=== PATIENT | male | born 1975 | race Caucasian/White ===

== ENCOUNTER 2021-10-05 13:33 | Day surgery (SDC) | payer OTHER ==
[2021-10-05] MEDS ORDERED: Xylocaine 1% Vial 30 ML PF IJ ONE (13:34)
[2021-10-05] MEDS ORDERED: Sodium Chloride 0.9% 10 ML FLUSH Syringe IJ ONE (13:34)
[2021-10-05] MEDS ORDERED: Depo-Medrol 40 MG/ML IM ONE (13:34)
[2021-10-05] MEDS ORDERED: DIPRIVAN 200 MG/20 ML IV ONE (15:02)
[2021-10-05] MEDS ORDERED: Lactated Ringers 1,000 ML IV ONE (15:28)
--- NOTE | 2021-10-05 16:40 | XRAY ---
Indication: Lumbar JUANCARLOS. Intraoperative fluoroscopy provided for 19 seconds. Single lateral digital spot image submitted for interpretation demonstrates posterior needle tip projecting just posterior to the L4-L5 interspace. Small amount of contrast injected for needle tip placement. Correlate with intraoperative findings/report.
--- NOTE | 2021-10-05 16:55 | XRAY ---
19 seconds fluoroscopy time in surgery for lumbar JUANCARLOS.
== END 2021-10-05 15:23 | disposition home or self-care (01) ==
LOC: SDC-PAIN 13:33
PROVIDERS: ATTEND Psychiatry & Neurology Pain Medicine
DX: M54.16 Radiculopathy, lumbar region (principal); I10 Essential (primary) hypertension; K21.9 Gastro-esophageal reflux disease without esophagitis; F41.9 Anxiety disorder, unspecified; F32.9 Major depressive disorder, single episode, unspecified; Z79.899 Other long term (current) drug therapy
CPT/HCPCS: 62323; 72100; 77003; J1030; J2001; J2704; Q9966

== ENCOUNTER 2022-04-19 15:55 | Day surgery (SDC) | payer BC ==
[2022-04-19] MEDS ORDERED: Marcaine Mpf 0.5% Vial 30 Ml IJ ONE (15:56)
[2022-04-19] MEDS ORDERED: Depo-Medrol 40 MG/ML IM ONE (15:56)
[2022-04-19] MEDS ORDERED: XYLOCAINE-MPF 1% 5ML SDV IJ ONE (15:56)
--- NOTE | 2022-04-19 21:33 | XRAY ---
Indication: Right shoulder and subacromial bursa injection Intraoperative fluoroscopy provided for 27 seconds. 2 digital spot image submitted for interpretation demonstrates needle tip projecting over the right glenohumeral joint superiorly. Second needle tip subacromial. Small amount of contrast injected for both needle tip placement. Correlate with intraoperative findings/report.
--- NOTE | 2022-04-20 09:13 | XRAY ---
27 seconds of fluoroscopy was used in surgery for a right shoulder intra-articular injection.
== END 2022-04-19 19:30 | disposition home or self-care (01) ==
LOC: SDC-PAIN 15:55
PROVIDERS: ATTEND Psychiatry & Neurology Pain Medicine
DX: M19.012 Primary osteoarthritis, left shoulder (principal); M19.011 Primary osteoarthritis, right shoulder; Z79.899 Other long term (current) drug therapy
CPT/HCPCS: 20610; 73030; 77002; J1030; Q9966

== ENCOUNTER 2023-12-13 10:43 | Day surgery (SDC) | payer BC ==
[2023-12-13] MEDS ORDERED: XYLOCAINE-MPF 1% 5ML SDV IJ ONE (10:44)
[2023-12-13] MEDS ORDERED: DIPRIVAN 200 MG/20 ML IV ONE (12:50)
[2023-12-13] MEDS ORDERED: Versed 2 MG/2 ML Injection ONE (12:53)
[2023-12-13] MEDS ORDERED: Lactated Ringers 1,000 ML IV ONE (14:33)
--- NOTE | 2023-12-13 14:48 | XRAY ---
Indication: Left C3-C5 MBB. Intraoperative fluoroscopy provided for 20 seconds. 2 digital spot image submitted for interpretation demonstrates posterior needle tips projecting over the expected left C3-C5 nerve roots. Correlate with intraoperative findings/report.
--- NOTE | 2023-12-13 15:10 | XRAY ---
20 seconds of fluoroscopy was used in surgery for a left C3-C5 MBB.
== END 2023-12-13 13:25 | disposition home or self-care (01) ==
LOC: SDC-PAIN 10:43
PROVIDERS: ATTEND Psychiatry & Neurology Pain Medicine
DX: M47.812 Spondylosis without myelopathy or radiculopathy, cervical region (principal)
CPT/HCPCS: 64490; 64491; 72040; 77002; J2250; J2704

== ENCOUNTER 2024-04-23 11:16 | Day surgery (SDC) | payer BC, SELFPAY ==
[2024-04-23] MEDS ORDERED: BUPIVACAINE 0.5% VIAL IJ ONE (11:17)
[2024-04-23] MEDS ORDERED: Reglan 10 MG/2 ML ONE (12:52)
[2024-04-23] MEDS ORDERED: Pepcid 20 MG VIAL IV ONE (12:52)
[2024-04-23] MEDS ORDERED: DIPRIVAN 200 MG/20 ML IV ONE (13:41)
--- NOTE | 2024-04-23 14:51 | XRAY ---
Indication: Left C3-C5 MBB. Intraoperative fluoroscopy provided for 15 seconds. 3 digital spot image submitted for interpretation demonstrates posterior needle tips projecting over the expected left C3-C5 nerve roots. Correlate with intraoperative findings/report.
[2024-04-23] MEDS ORDERED: Lactated Ringers 1,000 ML IV ONE (14:56)
--- NOTE | 2024-04-23 15:19 | XRAY ---
15 seconds of fluoroscopy was used in surgery for a left C3-C5 MBB.
== END 2024-04-23 14:17 | disposition home or self-care (01) ==
LOC: SDC-PAIN 11:16
PROVIDERS: ATTEND Psychiatry & Neurology Pain Medicine
DX: M47.812 Spondylosis without myelopathy or radiculopathy, cervical region (principal)
CPT/HCPCS: 64490; 64491; 72040; 77002; J2704

== ENCOUNTER 2024-06-18 13:39 | Day surgery (SDC) | payer BC ==
[2024-06-18] MEDS ORDERED: Decadron 4 MG INJ IV ONE (13:40)
[2024-06-18] MEDS ORDERED: BUPIVACAINE 0.5% VIAL IJ ONE (13:40)
[2024-06-18] MEDS ORDERED: LIDOCAINE HCL 1% 50 MG/5 ML VL PF IJ ONE (13:40)
[2024-06-18] MEDS ORDERED: DIPRIVAN 200 MG/20 ML IV ONE ×2 (15:08→15:20)
[2024-06-18] MEDS ORDERED: Lactated Ringers 1,000 ML IV ONE (15:43)
--- NOTE | 2024-06-18 16:26 | XRAY ---
Indication: Left C3-C5 RFA. Intraoperative fluoroscopy provided for 20 seconds. 4 digital spot images submitted for interpretation demonstrates posterior needle tips projecting over the expected left C3-C5 nerve roots. Correlate with intraoperative findings/report.
--- NOTE | 2024-06-18 16:34 | XRAY ---
20 seconds of fluoroscopy was used in surgery for a left C3-C5 RFA.
== END 2024-06-18 15:47 | disposition home or self-care (01) ==
LOC: SDC-PAIN 13:39
PROVIDERS: ATTEND Psychiatry & Neurology Pain Medicine
DX: M47.812 Spondylosis without myelopathy or radiculopathy, cervical region (principal)
CPT/HCPCS: 64633; 64634; 72040; 77002; J1100; J2001; J2704

== ENCOUNTER 2024-09-04 16:13 | Day surgery (SDC) | payer BC ==
[2024-09-04] MEDS ORDERED: Decadron 4 MG INJ IV ONE (16:14)
[2024-09-04] MEDS ORDERED: LIDOCAINE HCL 1% AMPUL 5 ML IJ ONE (16:14)
[2024-09-04] MEDS ORDERED: Sodium Chloride 0.9(Preservative Free) 10 ML IJ ONE (16:14)
--- NOTE | 2024-09-04 18:32 | XRAY ---
Indication: Cervical JUANCARLOS. Intraoperative fluoroscopy provided for 22 seconds. 4 digital spot images submitted for interpretation demonstrates posterior needle tip projecting posterior to cervical thoracic junction. Small amount of contrast injected for needle tip placement. Correlate with intraoperative findings/report.
--- NOTE | 2024-09-05 09:20 | XRAY ---
33 seconds of fluoroscopy was used in surgery for a cervical JUANCARLOS.
== END 2024-09-04 17:25 | disposition home or self-care (01) ==
LOC: SDC-PAIN 16:13
PROVIDERS: ATTEND Psychiatry & Neurology Pain Medicine
DX: M54.12 Radiculopathy, cervical region (principal)
CPT/HCPCS: 62321; 72040; 77003; J1100; Q9966

== ENCOUNTER 2024-10-22 12:42 | Day surgery (SDC) | payer BC ==
[2024-10-22] MEDS ORDERED: Depo-Medrol 40 MG/ML IM ONE (12:43)
[2024-10-22] MEDS ORDERED: Sodium Chloride 0.9(Preservative Free) 10 ML IJ ONE (12:43)
[2024-10-22] MEDS ORDERED: DIPRIVAN 200 MG/20 ML IV ONE (15:03)
--- NOTE | 2024-10-22 16:57 | XRAY ---
Indication: Caudal JUANCARLOS. Intraoperative fluoroscopy provided for 10 seconds. 2 digital spot image submitted for interpretation demonstrates caudal needle tip projecting mid sacrum. Small amount of contrast injected for needle tip placement. Correlate with intraoperative findings/report.
--- NOTE | 2024-10-22 17:05 | XRAY ---
10 seconds of fluoroscopy was used in surgery for a caudal JUANCARLOS.
== END 2024-10-22 15:38 | disposition home or self-care (01) ==
LOC: SDC-PAIN 12:42
PROVIDERS: ATTEND Psychiatry & Neurology Pain Medicine
DX: M54.16 Radiculopathy, lumbar region (principal)
CPT/HCPCS: 72220; 77003; J2704